=== PATIENT | male | born 2000 | race Caucasian/White ===

== ENCOUNTER 2021-03-09 15:11 | Emergency (ER) | payer OTHER ==
[~2021-03-09] VITALS: Ht 165.1 cm; Wt 81.8 kg
[2021-03-09] MEDS ORDERED: HYDROCODONE/ACETAMINOPHEN 5-325 MG TABLET PO ONE (16:45)
[2021-03-09 18:13] VITALS: BP 118/63
== END 2021-03-09 18:14 | disposition home or self-care (01) ==
LOC: EMS 15:36
DX: S09.90XA Unspecified injury of head, initial encounter (principal); S00.81XA Abrasion of other part of head, initial encounter; V49.49XA Driver injured in collision with other motor vehicles in traffic accident, initial encounter; Y93.89 Activity, other specified; Y92.89 Other specified places as the place of occurrence of the external cause; Y99.8 Other external cause status
CPT/HCPCS: 70450; 71046; 72072; 99284